=== PATIENT | male | born 1960 | race Two or more races ===

== ENCOUNTER 2016-06-18 16:10 | Emergency (ER) | payer MEDICARE, OTHER ==
[~2016-06-18] VITALS: Ht 175.3 cm; Wt 101.6 kg
[2016-06-18 16:49] LABS: Urine RBC None Seen /hpf (0 - 3)
[2016-06-18 17:08] LABS: Urine Bilirubin Negative (Negative); Urine Blood Negative /uL (Negative); Urine Glucose Normal (Normal); Urine Ketone Negative (Negative); Urine Nitrite Negative (Negative); Urine Squamous Epithelial Cell FEW /hpf (<5); Urine Urobilinogen Normal (Negative); Urine pH 6.5 (5.0-8.0)
[2016-06-18 17:13] LABS: Urine Color Straw (Yellow)
[2016-06-18 19:32] VITALS: BP 144/96
== END 2016-06-18 20:01 | disposition home or self-care (01) ==
LOC: ER 16:17
DX: I86.1 Scrotal varices (principal); E11.9 Type 2 diabetes mellitus without complications; I10 Essential (primary) hypertension; F41.9 Anxiety disorder, unspecified; Z88.8 Allergy status to other drugs, medicaments and biological substances; Z88.1 Allergy status to other antibiotic agents
CPT/HCPCS: 81001